=== PATIENT | female | born 1970 | race Caucasian/White ===

== ENCOUNTER → 2020-06-03 | Outpatient (CLI) | payer BC ==
--- NOTE | 2020-06-03 14:53 | US ---
EXAM DESCRIPTION: Pelvic,Non-OB: Ultrasound. CLINICAL HISTORY: 49 years Female GENERALIZED ABDOMIN PAIN. Palpable left lower quadrant mass. Menstrual history unknown. COMPARISON: Radiographs of the left hip and abdomen on the same visit. TECHNIQUE: Transcutaneous scanning through the urine filled bladder. Endovaginal scanning. Paul-scale and Doppler modes. FINDINGS: Uterus is difficult to visualize. Uterus measures 6.9 x 3.3 x 4.2 cm for an estimated volume of 49.8 mL. Possibly retroverted. Endometrial thickness 7.7 mm. No fluid in the cul-de-sac. Right adnexa visualized but no ovarian tissue seen. No free fluid. A complex mass with hypoechoic and solid lobulated component with outer margins relatively well-circumscribed is visible in the left adnexa. The mass measures approximately 13.1 x 10 cm transverse and approximately 12.8 cm longitudinal in the sagittal plane. On endovaginal scan, the hypoechoic homogeneous material surrounding the lobulated mass could represent hemorrhage. The solid lobulated mass within the capsule measures approximately 8.7 x 6.4 cm in the sagittal axis. 9.6 cm transverse. Focal regions of increased echogenicity could represent calcification. No significant shadowing. Minimal free fluid in the left adnexa. A separate normal-appearing ovary was not visualized. IMPRESSION: 1. Large complex left adnexal mass possibly ovarian with fluid, hemorrhagic, and solid component, possible calcifications. Increased vascularity in the solid component. 13.1 cm long axis. Free fluid in the left adnexa. Differential includes benign versus malignant ovarian neoplasm, or metastatic process or bowel or mesenteric tumor. [facility] Best Practice guidelines: Multiple ovarian cysts. Most severe: 13.1 cm indeterminate ovarian cyst. If pre-menopausal, Recommend follow-up pelvic MRI with IV contrast or surgical evaluation. If post-menopausal, Recommend surgical evaluation. Reference: Radiology 2010 Mar;256(3):943-54. 2. Uterus displaced and possibly retroverted. Endometrial thickening depending on menstrual status. Right adnexa unremarkable. CRITICAL COMMUNICATION: The critical value was communicated directly by Dr. Silverio via phone call, with Dr. Aurelio Romero, at approximately 1430 hours, on June 03, 2020. Electronically signed by: Robles Silverio MD 06/03/2020 2:51 PM [employer]
== END ==
LOC: US 13:39
PROVIDERS: ATTEND Family Medicine
DX: R19.09 Other intra-abdominal and pelvic swelling, mass and lump (principal); N83.209 Unspecified ovarian cyst, unspecified side; N85.4 Malposition of uterus; N85.8 Other specified noninflammatory disorders of uterus; R10.84 Generalized abdominal pain

== ENCOUNTER → 2020-06-08 | Outpatient (CLI) | payer BC ==
--- NOTE | 2020-06-09 10:24 | MRI ---
EXAM DESCRIPTION: Pelvis w/wo Contrast Magnetic Resonance Imaging. CLINICAL HISTORY: generalized abdominal pain. Adnexal mass possible ovary on pelvic ultrasound COMPARISON: Pelvic ultrasound June 03. TECHNIQUE: Multiplanar MRI, multiple sequences, before and after 1 mL per 5 kg body weight, Dotarem gadolinium IV contrast. No adverse reactions. FINDINGS: Complex pelvic mass in the superior pelvis measures 10.6 cm long axis parallel to the sacrum, and 9.1 x 10.9 cm in the oblique transverse plane, perpendicular to the sacrum and pelvic cavity. Variable enhancement of the capsule with cystic components not enhancing. The capsule is more thickened and irregular on the inferior and anterior aspect abutting the anterior lower segment of the uterus and the posterior urinary bladder. The uterus is displaced into a retroflexed orientation and the inferior fatty interface of the uterus and the mass are incompletely defined in the upper cul-de-sac with heterogeneous enhancement. The complex mass is a combination of cystlike fluid more superiorly and inferior mostly solid mass with frond-like or papillary component; this is possibly extending through the inferior capsule into the upper cul-de-sac as described above. This mostly solid component demonstrates T1 and T2 signal hyperintense to pelvic muscle, and partial enhancement and edema. Fluid in the cul-de-sac, but not extensively in the adnexa. Enhancement of the uterine lining and myometrium and cervix. Heterogeneous tissue with minimal enhancement to the right of the lower uterine segment and cervix measures 2.4 x 1.9 x 1.1 cm interpreted to be the right ovary. Relatively well-circumscribed object on the left side of the fundus is hypointense on T2 sequence and intermediate signal on T1 sequence with minimal enhancement and more likely to represent pedunculated fibroid and left ovary. Dimensions are 1.9 x 1.7 x 1.5 cm. No enlarged obturator lymph nodes or iliac lymph nodes or mass. Heterogeneous marrow and cortical signal in the included osseous structures but no destructive or blastic lesions or abnormal enhancement. Joint spaces are preserved. Minimal wall thickening of the urinary bladder but no internal mass. Pelvic musculature symmetric size and enhancement. No abnormal enhancement in the included soft tissues. IMPRESSION: 1. Complex pelvic mass in the midline and left adnexa with mass effect on the uterus and urinary bladder. 10.9 cm largest axis. Cystic component mostly superior and solid papillary-like component mostly inferior. Partially enhancing capsule is mostly circumscribed and well-defined with internal cysts in the capsule. However, inferior capsule may be breached by solid component of the tumor with possible invasion of superior cul-de-sac and attachment to the uterine capsule. Differential includes serous cystadenocarcinoma of the ovary, benign serous/mucinous cystadenoma of the ovary, mucinous cystadenocarcinoma the ovary, and metastasis to the ovary or uterine lining. Surgical consult and tissue diagnosis is recommended. 2. Fluid in the cul-de-sac. Pedunculated fibroid on the left side of the uterine body. No adnexal mass and no enlarged lymph nodes. Electronically signed by: Robles Silverio MD 06/09/2020 10:22 AM [facility]
== END ==
LOC: MRI 09:06
PROVIDERS: ATTEND Family Medicine
DX: Z01.812 Encounter for preprocedural laboratory examination (principal); R19.04 Left lower quadrant abdominal swelling, mass and lump; N85.8 Other specified noninflammatory disorders of uterus; D25.9 Leiomyoma of uterus, unspecified

== ENCOUNTER → 2020-08-12 | Outpatient (CLI) | payer BC ==
--- NOTE | 2020-08-12 12:41 | CT ---
EXAM DESCRIPTION: Abdomen/Pelvis w/wo Contrast CLINICAL HISTORY: 50 years Female, INTRA ABDOMINAL SWELLING COMPARISON: None. TECHNIQUE: CT of the abdomen and pelvis acquired without and with IV contrast material. Coronal and sagittal reformations provided. This exam was performed according to our departmental dose-optimization program, which includes automated exposure control, adjustment of the mA and/or kV according to patient size and/or use of iterative reconstruction technique. FINDINGS: Lung bases: Clear. Solid Organs: Millimetric cyst or hemangioma in the inferior right hepatic lobe. Mild focal fatty infiltration along the falciform ligament anteriorly. 10 mm round soft tissue density within the gallbladder along the nondependent gallbladder wall. No biliary ductal dilatation are unremarkable. Spleen, pancreas, adrenal glands, and kidneys. GI tract: Possible small hiatal hernia. No small bowel obstruction. Scattered distal colonic diverticula without pericolonic fluid collection. Mild/moderate colonic stool. Short segment mucosal thickening and luminal narrowing at the hepatic flexure, best appreciated on axial image 41. Appendix is not identified. No pericecal inflammation. Vascular: No significant atherosclerosis. Musculoskeletal and soft tissues: No acute fracture or aggressive appearing osseous lesion. Appears to be previous surgical changes to the midline ventral abdominal wall but with no discrete fluid collection. Urinary bladder: Normal. Uterus and adnexa: Uterus is absent. Other: None. IMPRESSION: 1. No acute abnormality of the abdomen or pelvis. 2. Short segment mucosal thickening in the luminal narrowing at the hepatic flexure of the colon. Although this may represent peristalsis, focal infection or inflammation versus neoplasm not excluded. Ensure the patient is up-to-date on colorectal screening. 3. Possibly gallbladder polyp as described above. Neoplasm not excluded. Dedicated ultrasound the gallbladder may further evaluate. 4. Mild/moderate colonic stool. 5. Hysterectomy. 6. Previously questioned midline ventral abdominal wall. No discrete organized fluid collection. Electronically signed by: Eliazar Arce MD 08/12/2020 12:40 PM [facility]
== END ==
LOC: LAB.O 11:20
PROVIDERS: ATTEND Family Medicine
DX: R19.07 Generalized intra-abdominal and pelvic swelling, mass and lump (principal); K82.9 Disease of gallbladder, unspecified; K63.9 Disease of intestine, unspecified; Z90.710 Acquired absence of both cervix and uterus